=== PATIENT | female | born 1990 | race Caucasian/White ===

== ENCOUNTER 2025-01-16 12:58 | Emergency (ER) | payer BC, SELFPAY ==
[2025-01-16 13:02] VITALS: BP 140/99; PULSE 109; RESP 19; TEMP 36.8; O2SAT 99; BMI 29.8
--- NOTE | 2025-01-16 13:06 | XR_ITS ---
Examination: PA lateral chest 2 views TECHNIQUE: Upright PA lateral chest 2 views Date and time: January 16, 2025 1331 hours INDICATIONS: Anemia on examination today FINDINGS: Normal heart size. Lungs are clear. The osseous structures are intact. IMPRESSION: No active disease
--- NOTE | 2025-01-16 13:06 | EKG_ITS ---
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
--- NOTE | 2025-01-16 13:07 | PD.EDRME ---
Rapid Medical Screening Exam RME Arrival date/time: 01/16/25 12:58 34-year-old female with medical history significant for gastric sleeve presents with concerns for low hemoglobin patient reports that she was told her hemoglobin is 4 Chief Complaint: Recheck/Abnormal Lab/Rx Vital signs: Vital Signs Temperature 98.3 F 01/16/25 13:02 Pulse Rate 109 H 01/16/25 13:02 Respiratory Rate 19 01/16/25 13:02 Blood Pressure 140/99 H 01/16/25 13:02 Pulse Oximetry (%) 99 01/16/25 13:02 Oxygen Delivery Method Room Air 01/16/25 13:02
[2025-01-16 13:38] LABS: Basophils # (Auto) 0.1 Thou/mm3 (0.0-0.2); Basophils % (Auto) 1 % (0-2.5); Eosinophils # (Auto) 0.4 Thou/mm3 (0.0-0.5); Eosinophils % (Auto) 4 % (0-10); Hematocrit 41.8 % (36.0-46.0); Hemoglobin 14.0 g/dL (12.0-16.0); Immature Granulocytes Auto 0.04 Thou/mm3 (0.00-0.00); Lymphocytes # (Auto) 1.9 Thou/mm3 (1.0-4.8); Lymphocytes % (Auto) 20 % (10-50); Mean Corpuscular HGB Conc 33.5 g/dl (31.0-37.0); Mean Corpuscular Hemoglobin 29.3 pg (25.0-35.0); Mean Corpuscular Volume 87 fL (80-100); Monocytes # (Auto) 0.5 Thou/mm3 (0.0-0.8); Monocytes % (Auto) 5 % (0-12); Neutrophils # (Auto) 6.6 Thou/mm3 (1.8-7.7); Neutrophils % (Auto) 69 % (37-80); Nucleated Red Blood Cell # 0.00 Thou/mm3 (0.00-0.00); Nucleated Red Blood Cell % 0 /100 WBC (0); Platelet Count 260 Thou/mm3 (140-440); RDW Standard Deviation 39.8 fL (36.4-46.3); Red Blood Count 4.78 Miln/mm3 (4.00-5.20); White Blood Count 9.5 Thou/mm3 (3.6-11.0)
[2025-01-16 14:00] LABS: INR 0.9 (0.9-1.3); Partial Thromboplastin Time 23.9 Seconds (22.0-36.0); Prothrombin Time 10.0 Seconds (9.0-12.2)
[2025-01-16 14:01] LABS: Alanine Aminotransferase 13 U/L (10-49); Albumin, Serum 4.5 gm/dL (3.5-5.0); Albumin/Globulin Ratio 1.8 (1.2-2.2); Alkaline Phosphatase 57 U/L (46-116); Anion Gap 9 (7-16); Aspartate Amino Transferase 20 U/L (0-34); BUN/Creatinine Ratio 10 Ratio (12-20); Bilirubin,Total 0.8 mg/dL (0.3-1.2); Blood Urea Nitrogen 9 mg/dL (9-23); Calcium 9.7 mg/dL (8.3-10.6); Calcium (Corrected) 9.7 mg/dL (8.5-10.1); Carbon Dioxide 27.5 mMol/L (20.0-31.0); Chloride 104 mMol/L (98-107); Creatinine (Component) 0.9 mg/dL (0.6-1.3); Estimated Creatinine Clearance 90.4 mL/min (>60); Free T4 (Free Thyroxine) 1.03 ng/dL (0.89-1.76); Globulin 2.5 gm/dL (2.3-3.5); Glucose 92 mg/dL (74-106); Osmolality,Calculated 278 (275-295); Potassium 4.2 mMol/L (3.4-5.1); Sodium 140 mMol/L (136-145); Thyroid Stimulating Hormone 1.45 uIU/mL (0.55-4.78); Total Protein 7.0 gm/dL (5.7-8.2); Troponin I < 0.002 ng/mL (0.0-0.045); eGFR > 60 See Note
[2025-01-16 14:06] LABS: HCG,Qualitative Serum Negative
--- NOTE | 2025-01-16 16:56 | EDNOTE_ITS ---
ED Recheck Abnl Lab Rx-RME/HPI General Chief Complaint: Recheck/Abnormal Lab/Rx Stated Complaint: HGB 4 @PCP Time Seen by Provider: 01/16/25 16:55 Arrival date/time: 01/16/25 12:58 34-year-old female with medical history significant for gastric sleeve presents with concerns for low hemoglobin patient reports that she was told her hemoglobin is 4 patient reports she had outpatient labs a couple of weeks ago patient reports he has had generalized fatigue over the last few months Limitations: no limitations RME / HPI RME / HPI narrative: 01/16/25 12:58 34-year-old female with medical history significant for gastric sleeve presents with concerns for low hemoglobin patient reports that she was told her hemoglobin is 4 Related Data Allergies Allergy/AdvReac Type Severity Reaction Status Date / Time erythromycin base Allergy Mild Rash Verified 01/16/25 13:00 codeine Allergy Unknown Verified 01/16/25 13:00 Review of Systems Review of Systems Systems Reviewed: All systems reviewed, normal except as documented Constitutional Constitutional: Reports system reviewed and no additional complaints, except as documented, Reports fatigue, Denies fever(s) and Denies headache(s) Eyes Eyes: Reports system reviewed and no additional complaints, except as documented and Denies blurry vision ENT Ears, Nose, Mouth, and Throat: Reports system reviewed and no additional complaints, except as documented, Denies headache(s), Denies nasal congestion and Denies nasal discharge Cardiovascular Cardiovascular: Reports system reviewed and no additional complaints, except as documented, Denies chest pain and Denies dyspnea Respiratory Respiratory: Reports system reviewed and no additional complaints, except as documented, Denies chest congestion, Denies cough and Denies dyspnea Gastrointestinal Gastrointestinal: Reports system reviewed and no additional complaints, except as documented and Denies abdominal pain Integumentary/Breasts Skin/Breast: Reports system reviewed and no additional complaints, except as documented and Denies rash Neurologic Neurologic: Reports system reviewed and no additional complaints, except as documented, Reports as per HPI and Denies headache(s) Endocrine Endocrine: Reports fatigue Past Medical History Social History SMOKING STATUS: Never smoker ED Exam General Limitations: Present no limitations General appearance: Present alert and in no apparent distress Head Head exam: Present atraumatic Eye Eye exam: Present normal appearance, PERRL and EOMI ENT ENT exam: Present normal exam, normal oropharynx and mucous membranes moist Neck Neck exam: Present normal inspection, full ROM and trachea midline Chest Chest inspection: Present normal inspection and symmetric chest wall rise Respiratory Respiratory exam: Present normal lung sounds bilaterally Cardiovascular Cardiovascular exam: Present regular rate, normal rhythm and normal heart sounds Abdominal Exam Abdominal exam: Present soft and normal bowel sounds Extremities Exam Extremities exam: Present normal inspection and full ROM Back Exam Back exam: Present normal inspection and full ROM Neurological Exam Neurological exam: Present alert, oriented X3 and CN II-XII intact Psychiatric Psychiatric exam: Present normal affect and normal mood Skin Skin exam: Present warm, dry, intact and normal color Course Quality Measures none Orders Category Date Time Status EKG (ED ONLY) *Do not use* NOW Care 01/16/25 13:06 Completed EKG (ED Only) Stat Exams 01/16/25 13:06 Draft XR chest 2V Stat Exams 01/16/25 13:06 Completed CBC Stat Lab 01/16/25 13:32 Completed Comprehensive Metabolic Panel Stat Lab 01/16/25 13:32 Completed Free T4 (Free Thyroxine) Stat Lab 01/16/25 13:32 Completed HCG,Qualitative Serum Stat Lab 01/16/25 13:32 Completed Partial Thromboplastin Time Stat Lab 01/16/25 13:32 Completed Prothrombin Time with INR Stat Lab 01/16/25 13:32 Completed TSH [Thyroid Stimulating Hormone] Stat Lab 01/16/25 13:32 Completed Troponin I Stat Lab 01/16/25 13:32 Completed Type and Screen Stat Lab 01/16/25 13:32 Completed Vital Signs Vital signs: Vital Signs Temperature 98.3 F 01/16/25 13:02 Pulse Rate 109 H 01/16/25 13:02 Respiratory Rate 19 01/16/25 13:02 Blood Pressure 140/99 H 01/16/25 13:02 Pulse Oximetry (%) 99 01/16/25 13:02 Oxygen Delivery Method Room Air 01/16/25 13:02 O2 saturation 9 9% room air within normal limits PROCEDURES: EKG Interpretation #1: Date of EK01/16/25 Time of EK:09 Rate: 116 Interpretation: Interpreted by me EKG Impression: No acute ST-T changes, No ectopy, No ischemic changes, Sinus tachycardia, Normal QRS, Normal intervals and Normal axis Recheck / Abnormal Lab / Rx MDM Narrative MDM Narrative:: 34-year-old female with medical history significant for gastric sleeve presents with concerns for low hemoglobin patient reports that she was told her hemoglobin is 4 patient reports she had outpatient labs a couple of weeks ago patient reports he has had generalized fatigue over the last few months Patient reports no chest pain no shortness of breath no dizziness On exam patient well-appearing patient's not appear toxic no acute distress Patient does appear to be nervous Initially patient's heart rate was elevated and he believe this is probably secondary to being nervous When rechecked her heart rate is normal Lab work and EKG obtained Patient's hemoglobin is 14 and not 4 patient is very happy with the results patient is well-appearing at time of discharge Explained the patient she should follow-up with primary care doctor for further evaluation patient states understanding Patient data External records reviewed:: [facility] previous records Clinical information provided by:: patient Social determinants that could affect healthcare access:: none Patient has the following chronic illnesses:: See history How is presenting disease/condition affected by chronic disease/condition?: exacerbated by Evaluation data The following diagnostics were reviewed and interpreted by me:: lab results, radiology exam(s) and EKG tracing(s) Lab and/or radiology exams considered but not ordered:: Labs, radiology, EKG obtained Interpretation Summary: Reviewed by me Medications / Prescriptions Medications or Prescriptions considered but not ordered:: No meds Medication administrations:: Given no meds Consultations Consultation(s) initiated? (list below): No Diagnosis Recheck Differential Diagnosis: other (Fatigue, hypothyroid, hyperthyroid, autoimmune disorder) Most likely diagnosis given after review of the tests above:: Fatigue Admission Indicated Admission indicated?: not indicated Admission Request Was there a request for admission?: No Disposition Plan Disposition Plan: Discharge Discharge Attestation Discharge Attestation: The patient and all family members were given an opportunity to ask questions and understood the discharge instructions. Discharge instructions specifically effects, indications for sooner follow up or return to the emergency department, and the expected course of current diagnosis. Patient condition: Stable Discharge Plan Plan Patient Disposition: HOME (Self Care) Discharge Disposition comment: Stable Prescriptions/Referrals Referrals: Cristina Melendez PA-C [Primary Care Provider] - 01/17/25 Problem List Clinical Impression: Fatigue Patient/Caregiver Discharge Instructions Additional Instructions: Please follow up with your primary care doctor in the next 24-48hrs for any worsening symptoms return here immediately Print Language: Welsh Stand Alone Forms: Cailin Award Info., Patient Portal Info Letter KAVITA/GRANITE CHIP TERRAZZO FINISHER Supervising Physician PA/GRANITE CHIP [employer]RAZZ[employer] FINISHER Supervising Physician: Dr. roach
== END 2025-01-16 18:01 | disposition home or self-care (01) ==
PROVIDERS: Nurse Practitioner Primary Care; Emergency Provider Emergency Medicine; PCP Physician Assistant
DX: R53.83 Other fatigue (principal); Z98.84 Bariatric surgery status
CPT/HCPCS: 36415; 71046; 80053; 84439; 84443; 84484; 84703; 85025; 85610; 85730; 86850; 86900; 86901; 93005; 99283